=== PATIENT | male | born 2000 | race Caucasian/White ===

== ENCOUNTER 2019-12-30 08:06 | Emergency (ER) | payer OTHER, SELFPAY ==
[2019-12-30 08:08] VITALS: BP 156/93; PULSE 85; RESP 16; TEMP 36.7; O2SAT 95
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
--- NOTE | 2019-12-30 08:44 | PC.NURSE ---
Pt was going to be transferred, but states she cannot afford to be that far away from home and it would put a hardship on her family. She took herself off of her bi pap, and removed her IV line and was getting ready to walk out when respiratory found her and told me. informed and went to room and convinced pt to stay if we could get [place] [facility] agreed to this.
[2019-12-30 08:57] VITALS: BP 152/83; PULSE 77; RESP 16; O2SAT 94
== END 2019-12-30 08:59 | disposition home or self-care (01) ==
PROVIDERS: Emergency Provider Physician Assistant; Family Provider Nurse Practitioner; PCP Nurse Practitioner
DX: S16.1XXA Strain of muscle, fascia and tendon at neck level, initial encounter (principal); V50.5XXA Driver of pick-up truck or van injured in collision with pedestrian or animal in traffic accident, initial encounter
CPT/HCPCS: 72125; 72170; 99282; 99283

== ENCOUNTER → 2020-04-27 12:02 | Outpatient (BNVA) | payer OTHER, SELFPAY | PROVIDERS: Family Provider Nurse Practitioner; PCP Nurse Practitioner; Visit Provider Nurse Practitioner | DX: R19.7 Diarrhea, unspecified (principal) | CPT/HCPCS: 81000; 87205; 87506 ==

== ENCOUNTER → 2021-05-11 13:52 | Outpatient (BNVA) | payer OTHER, SELFPAY | PROVIDERS: Family Provider Nurse Practitioner; PCP Nurse Practitioner; Visit Provider Nurse Practitioner | DX: R19.7 Diarrhea, unspecified (principal) | CPT/HCPCS: 80053; 85025; 87506 ==

== ENCOUNTER 2024-10-22 19:28 | Emergency (ER) | payer BC, SELFPAY ==
[2024-10-22] VITALS (15 sets, daily range): BP systolic 131–160; BP diastolic 84–100; PULSE 83–99; RESP 16–18; TEMP 36.7; O2SAT 88–99; BMI 42.7
--- NOTE | 2024-10-22 19:57 | PC.NURSE ---
Wound to right upper leg cleansed with 0.9% sodium chloride.
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
== END 2024-10-22 20:54 | disposition home or self-care (01) ==
PROVIDERS: Emergency Provider Emergency Medicine; PCP Nurse Practitioner
DX: S71.111A Laceration without foreign body, right thigh, initial encounter (principal); W26.0XXA Contact with knife, initial encounter
CPT/HCPCS: 12001; 99282